=== PATIENT | female | born 1935 | race Caucasian/White ===

== ENCOUNTER → 2018-12-18 | Outpatient (CLI) | payer MEDICARE, OTHER ==
--- NOTE | 2018-12-18 16:59 | PCVCIMAG ---
APPROVED REPORT Study performed: 12/18/2018 15:42:12 EXAM: Comprehensive 2D, Doppler, and color-flow Echocardiogram Patient Location: Echo lab Status: routine BSA: 1.83 HR: 65 bpmBP: 140/70 mmHg Rhythm: NSR Other Information Study Quality: Adequate Risk Factors: Cardiac Risk Factors: HTN, Hyperlipidemia, DM Indications Dyspnea Weakness 2D Dimensions IVSd: 11.75 (7-11mm)LVOT Diam: 20.00 (18-24mm) LVDd: 32.41 mm PWd: 11.81 (7-11mm)Ascending Ao: 28.94 (22-36mm) LVDs: 22.43 (25-40mm) Left Atrium: 40.95 (27-40mm) Aortic Root: 31.01 mm LV Single Plane 4CH: 55.26 % LV Single Plane 2CH: 60.25 % Volumes Left Atrial Volume (Systole) Single Plane 4CH: 42.47 mLSingle Plane 2CH: 23.93 mL LA ESV Index: 18.00 mL/m2 Aortic Valve AoV Peak Jose.: 2.29 m/s AO Peak Gr.: 21.01 mmHgLVOT Max P.79 mmHg AO Mean Gr.: 12.44 mmHgLVOT Mean P.95 mmHg AO V2 Mean: 1.71 m/sLVOT Max V: 0.94 m/s AO V2 VTI: 59.12 cmLVOT Mean V: 0.67 m/s MARILIA (VTI): 1.25 gw2ORSK V1 VTI: 22.98 cm MARILIA Vmax: 1.32 cm2 SV (LVOT): 74.01 mL Mitral Valve E/A Ratio: 0.8 MV Decel. Time: 282.66 ms MV E Max Jose.: 0.80 m/s MV A Jose.: 0.96 m/s IVRT: 69.20 ms TDI E/Lateral E': 11.43E/Medial E': 13.33 Medial E' Jose.: 0.06 m/s Lateral E' Jose.: 0.07 m/s Pulmonary Valve PV Peak Jose.: 0.69 m/sPV Peak Gr.: 1.88 mmHg SC End Vmax: 1.23 m/s Pulmonary Vein P Vein S: 0.54 m/sP Vein A: 0.31 m/s P Vein D: 0.29 m/sP Vein A Dur.: 138.4 msec P Vein S/D Ratio: 1.86 Tricuspid Valve TR Peak Jose.: 3.02 m/sRAP Estimate: 7.00 mmHg TR Peak Gr.: 36.41 mmHg PA Pressure: 43.00 mmHg Left Ventricle The left ventricle is normal size. There is normal LV segmental wall motion. Mild concentric left ventricular hypertrophy. Left ventricular systolic function is normal. The left ventricular ejection fraction is within the normal range. LVEF is 55-60%. Mild diastolic dysfunction is present (impaired relaxation pattern). Right Ventricle The right ventricle is normal size. The right ventricular systolic function is normal. Atria The left atrium size is normal. Right atrium is dilated. Aortic Valve Aortic valve is calcified. Peak aortic velocity is 21 mmHg and the mean is 12 mmHg. The calculated aortic valve area is 1.4 cm2. Mild aortic stenosis. Trace to mild aortic regurgitation. Mitral Valve There is mitral annular calcification and moderate posterior leaflet calcification. Trace mitral regurgitation. No evidence of mitral valve stenosis. Tricuspid Valve The tricuspid valve is normal in structure. Moderate tricuspid regurgitation. Pulmonary artery pressure is 43 mmHg. Pulmonic Valve The pulmonary valve is normal in structure. Mild pulmonic regurgitation. Great Vessels The aortic root is normal in size. IVC is normal in size and collapses >50% with inspiration. Pericardium There is no pericardial effusion. <Conclusion> The left ventricle is normal size. Mild concentric left ventricular hypertrophy. LVEF is 55-60%. Mild diastolic dysfunction is present (impaired relaxation pattern). The right ventricle is normal size. Right atrium is dilated. Aortic valve is calcified. Peak aortic velocity is 21 mmHg and the mean is 12 mmHg. The calculated aortic valve area is 1.4 cm2. Mild aortic stenosis. Trace to mild aortic regurgitation. Trace mitral regurgitation. Moderate tricuspid regurgitation. Pulmonary artery pressure is 43 mmHg. The aortic root is normal in size. There is no pericardial effusion.
== END | disposition home or self-care (01) ==
LOC: PCVCIMAG 14:50
PROVIDERS: ATTEND Internal Medicine Cardiovascular Disease
DX: I08.8 Other rheumatic multiple valve diseases (principal); R06.02 Shortness of breath; I10 Essential (primary) hypertension; E78.5 Hyperlipidemia, unspecified; E11.9 Type 2 diabetes mellitus without complications; Z86.718 Personal history of other venous thrombosis and embolism
CPT/HCPCS: 36415; 85610; 93005; 93306; G0463

== ENCOUNTER → 2019-01-09 | Outpatient (CLI) | payer MEDICARE, OTHER ==
[~2019-01-09] MED LIST: REGADENOSON 0.4 MG/5 ML DISP.SYRIN. IV ONE
--- NOTE | 2019-01-09 13:07 | PCVCIMAG ---
APPROVED REPORT Imaging Protocol: Rest Tc-99m/Stress Tc-99m 1 day Study performed: 01/09/2019 10:55:33 Indication: Dyspnea, Left Ventricular Hypertrophy Patient Location: Out-Patient Stress Nurse: Celina Castellon RN, Samantha Amaro RN [place] Tech:Dayami Oconnornan [facility] Ht: 5 ft 4 in Wt: 170 lbs BSA: 1.83 m2 HR: 65 bpm BP: 170/76 mmHg BMI: 29.17 Rhythm: Normal Sinus Rhythm Medical History Medical History: HTN, Hyperlipidemia Medications: Amlodipine-Valsartan, Zetia, Metformin, Metoprolol, Torsemide Allergies: None relevant to this exam Cardiac Risk Factors: Age Pretest Chest Pain Characteristics: No chest pain Exercise History: Sedentary Resting Data Rest SPECT myocardial perfusion imaging was performed in supine position 45 minutes following the intravenous injection of 9.9 mCi of Time of rest injection: 1010 Date: 01/09/2019 Administration Route: IV Administration Site: Left AC Pharmacologic Stress Pharmacologic stress test was performed by injecting Regadenoson 0.4 mg IV push over 10-15 seconds immediately followed by the intravenous injection of 32.2 mCi of Tc-99m Sestamibi. Time of stress injection: 1130 Date: 01/09/2019 Administration Route: IV Administration Site: Left AC Gated Stress SPECT was performed 45 minutes after stress injection. The images were gated to evaluate regional wall motion and calculate left ventricular ejection fraction. Stress Test Details Stress Test: Pharmacologic stress testing performed using 0.4 mg of regadenoson per 5 mL given IV over 10 seconds. Reason for pharmacologic stress test: Unsteady gait. HRMax Heart Rate (APMHR): 139 bpm Resting HR: 65 bpmTarget HR (85% APMHR): 118 bpm Max HR Achieved: 102 bpm % of APMHR: 73 Recovery HR: 80 bpm BP Resting BP: 170/76 mmHg Max BP: 185/77 mmHg Recovery BP: 153/65 mmHg ECG Resting ECG: Sinus Rhythm, nonspecific ST-T abnormalities Stress ECG: Sinus Rhythm, nonspecific ST-T abnormalities ST Change: Non-ischemic Arrhythmia: PAC's Recovery ECG: Sinus Rhythm Clinical Reason for Termination: Completed protocol Stress Symptoms: Chest thightness, Lightheaded, Headache Exercise duration: 0 min 55 sec Symptoms resolved with caffeine. Study Quality Study: Good Study Data Post stress, the left ventricular ejection was 74%.. SSS: 0 SRS: 0 SDS: 0 TID = 1.04. Perfusion Normal left ventricular perfusion. Normal perfusion on both the stress and rest images. Wall Motion Normal left ventricular wall motion. Nuclear Conclusion ECG Findings: negative for ischemia Clinical Findings: non-diagnostic Nuclear Findings: negative for ischemia Exercise Capacity: not assessed Left Ventricular Function: normal Risk Study: low This study is of low probability for inducible ischemia or prior infarct. Normal global and segmental LV systolic function.
== END | disposition home or self-care (01) ==
LOC: PCVCIMAG 09:34
PROVIDERS: ATTEND Internal Medicine Cardiovascular Disease
DX: I11.9 Hypertensive heart disease without heart failure (principal); R06.00 Dyspnea, unspecified; E78.5 Hyperlipidemia, unspecified; E11.9 Type 2 diabetes mellitus without complications
CPT/HCPCS: 78452; 93017; A9500; G0463; J2785

== ENCOUNTER → 2019-07-21 | Outpatient (CLI) | payer MEDICARE, OTHER | END | disposition home or self-care (01) | LOC: PCVCCLINIC 13:00 | PROVIDERS: ATTEND Internal Medicine Cardiovascular Disease | DX: I35.0 Nonrheumatic aortic (valve) stenosis (principal); I10 Essential (primary) hypertension; E78.5 Hyperlipidemia, unspecified; D68.59 Other primary thrombophilia; E11.9 Type 2 diabetes mellitus without complications; Z86.718 Personal history of other venous thrombosis and embolism; Z86.711 Personal history of pulmonary embolism; Z79.899 Other long term (current) drug therapy; Z79.84 Long term (current) use of oral hypoglycemic drugs | CPT/HCPCS: 36415; 80061; 93005; G0463 ==